=== PATIENT | male | born 1990 | race Caucasian/White ===

== ENCOUNTER 2020-12-27 22:29 | Emergency (ER) | payer SELFPAY | END 2020-12-28 01:15 | disposition home or self-care (01) | LOC: ER1 22:29 | DX: S01.91XA Laceration without foreign body of unspecified part of head, initial encounter (principal); W22.8XXA Striking against or struck by other objects, initial encounter; Y92.69 Other specified industrial and construction area as the place of occurrence of the external cause; Y99.0 Civilian activity done for income or pay | CPT/HCPCS: 90471; 90715; 99283 ==